=== PATIENT | female | born 1965 | race American Indian/Alaskan Native ===

== ENCOUNTER 2018-10-22 14:07 | Inpatient (IN) | payer OTHER | END 2018-11-01 19:29 | disposition short-term general hospital (02) | LOC: C.ER 14:07 → C.9E 16:57 → C.5S 18:30 ==

== ENCOUNTER 2018-11-14 09:31 | Emergency (ER) | payer OTHER ==
[2018-11-14 09:31] VITALS: BMI 58.5
[2018-11-14 09:46] VITALS: RESP 24
[2018-11-14] MEDS ORDERED: Lidocaine 5% Patch TD STA (10:31)
[2018-11-14] MEDS ORDERED: Lidocaine 5% Patch TD ONE (10:47)
[2018-11-14] MEDS ORDERED: Oxycodone/Acetaminophen 5/325 mg Tab ONE (11:24)
[2018-11-14] MEDS ORDERED: Oxycodone/Acetaminophen 5/325 mg Tab PO STA (11:24)
--- NOTE | 2018-11-14 11:24 | C.PDOC ---
History Of Present Illness 52 y/o morbidly obese female, who is 9 days s/p vaginal hysterectomy after persistent vaginal bleeding, c/o pain to bilateral anterior thighs, consistent with her neuropathy. pt sts she has been seen by Dr Cha in [place], who is neurologist, last in Apr, and has been taking tramadol, intermittently taking gabapentin. pt sts pain worse today; denies fever or chills, sts she has scant blood in urine, but no dysuria, no abdominal pain. . denies lower extremity weakness. no back pain. no saddle anesthesia. no numbness or tingling. Time Seen by Provider: 11/14/18 10:03 Chief Complaint (Nursing): Weakness/Neurological Deficit History Per: Patient History/Exam Limitations: no limitations Past Medical History Reviewed: Historical Data, Nursing Documentation, Vital Signs Vital Signs: Last Vital Signs Temp 98.4 F 11/14/18 09:43 Pulse 113 H 11/14/18 09:43 Resp 24 11/14/18 09:43 BP 138/88 11/14/18 09:43 Pulse Ox 95 11/14/18 09:43 - Medical History PMH: No Chronic Diseases Surgical History: Cholecystectomy Other Surgeries: vaginal hysterectomy - [facility] Procedures EXTRACTION OF ENDOMETRIUM, VIA OPENING, DIAGN (10/24/18) TRANSFUSE NONAUT RED BLOOD CELLS IN PERIPH VEIN, PERC (10/24/18) Family History: States: Unknown Family Hx - Social History Hx Alcohol Use: No Hx Substance Use: No - Immunization History Hx Tetanus Toxoid Vaccination: No Hx Influenza Vaccination: Yes Hx Pneumococcal Vaccination: Yes Review Of Systems Constitutional: Negative for: Fever, Chills, Weakness (lower extremities) Gastrointestinal: Negative for: Abdominal Pain Genitourinary: Positive for: Hematuria (scant), Vaginal Bleeding Musculoskeletal: Positive for: Leg Pain (bilateral thighs). Negative for: Back Pain Neurological: Negative for: Weakness, Numbness, Other (saddle anesthesia) Physical Exam - Physical Exam Appears: Non-toxic, No Acute Distress, Other (morbidly obese) Skin: Normal Color, Warm, Dry Head: Atraumatic, Normacephalic Neck: Normal ROM, Supple Chest: Symmetrical, No Deformity Cardiovascular: Rhythm Regular, No Murmur Respiratory: No Accessory Muscle Use, No Rales, No Rhonchi, No Wheezing Gastrointestinal/Abdominal: Soft, No Tenderness Back: No Vertebral Tenderness Extremity: Tenderness (bilateral anterior thighs tender to palpation, no erythema, no pitting edema ), No Calf Tenderness, Other (bilateral +1 pitting edema to the lower legs ) Pulses: Left Dorsalis Pedis: Normal, Right Dorsalis Pedis: Normal Neurological/Psych: Oriented x3, Normal Speech, Normal Cognition ED Course And Treatment O2 Sat by Pulse Oximetry: 95 (in RA) Medical Decision Making Medical Decision Making: Impression: 52 y/o morbidly obese female, who is 9 days s/p vaginal hysterectomy after persistent vaginal bleeding, c/o pain to bilateral anterior thighs, consistent with her neuropathy. Plan: UA and urine culture ordered for patient Patient given Lidoderm, Macrobid PO, gabapentin PO, Toradol IM, and Tylenol PO unable to reach Dr Cha Pt's pharmacy, [facility], checked; had rx for gabapentin 600 mg biid. pt iwth uti, tx with macrobid pt reports decreased pain, sitting on stretcher in no distress Disposition Counseled Patient/Family Regarding: Studies Performed, Diagnosis, Need For Followup, Rx Given - Disposition Referrals: Dae Sotomayor MD [Staff Provider] - Qamar Cha MD [Medical Doctor] - Disposition: HOME/ ROUTINE Disposition Time: 13:17 Condition: GOOD Additional Instructions: Start taking gabapentin on a regular basis. FOllow up with your surgeon, Dr Cha and with Dr Sotomayor (pain management) as soon as possible. Take antobiptics for urine infections. Prescriptions: Gabapentin 600 mg PO BID #60 tablet Nitrofurantoin Macrocrystals [Macrobid] 100 mg PO BID #14 cap Instructions: Urinary Tract Infection, Adult (DC), Peripheral Neuropathy (DC) Forms: [employer] (Bermudian) - Clinical Impression Clinical Impression: Neuropathy, UTI (urinary tract infection) - PA / FILTER TENDER / Resident Statement MD/DO has reviewed & agrees with the documentation as recorded. (Mily Loo) - Scribe Statement The provider has reviewed the documentation as recorded by the Scribe (Mily Loo) All medical record entries made by the Scribe were at my direction and personally dictated by me. I have reviewed the chart and agree that the record accurately reflects my personal performance of the history, physical exam, medical decision making, and the department course for this patient. I have also personally directed, reviewed, and agree with the discharge instructions and disposition.
[2018-11-14 12:35] LABS: SQUAMOUS EPITHIAL 4 /hpf (0-5); URINE BILIRUBIN NEGATIVE (NEGATIVE); URINE BLOOD 2+ (NEGATIVE); URINE CLARITY Hazy (Clear); URINE COLOR Yellow (YELLOW); URINE GLUCOSE (UA) NORMAL (Normal); URINE LEUKOCYTE ESTERASE 2+ Leu/uL (Negative); URINE PROTEIN NEGATIVE (NEGATIVE)
[2018-11-14 13:40] VITALS: BP 112/72; PULSE 73; TEMP 97.8
[2018-11-14 17:07] VITALS: O2SAT 95
== END 2018-11-14 13:37 | disposition home or self-care (01) ==
LOC: C.ER 09:31
DX: N39.0 Urinary tract infection, site not specified (principal); G62.9 Polyneuropathy, unspecified; E66.01 Morbid (severe) obesity due to excess calories
CPT/HCPCS: 81001; 87086; 87181; 96372; 99285; J1885